=== PATIENT | female | born 1945 | race Caucasian/White ===

== ENCOUNTER 2025-06-29 07:21 | Outpatient (CLI) | payer MEDICARE, MEDICAID ==
[~2025-06-29] VITALS: Ht 148.6 cm; Wt 80.3 kg
[2025-06-29 07:49] LABS: ABG BASE EXCESS -1.6 mmol/L (-2.0-3.0); ABG HCO3 21.9 mmol/L (21.0-28.0); ABG OXYGEN SATURATION 95.5 % (94.0-98.0); ABG PCO2 (T) 33.0 mmHg (32.0-45.0); ABG PH (T) 7.439 (7.350-7.450); ABG PO2 (T) 80.1 mmHg (83.0-108.0); FCOHb 0.3 % (0.5-1.5); FHHb 4.5 % (0.0-5.0); FIO2 21.0 mmHg/%; FMetHb 0.3 % (0.0-1.5); FO2Hb 94.9 % (94.0-98.0); MODE ROOM AIR; PATIENT TEMPERATURE 37.0; TOTAL HEMOGLOBIN 12.5 G/dl (12.0-16.0)
[2025-06-29] MEDS: albuterol 2.5 MG/3 ML nebule NEB ONE (08:52)
[2025-06-29 08:54] VITALS: PULSE 78; RESP 16; O2SAT 96
[2025-06-29 09:05] VITALS: PULSE 79; RESP 16
--- NOTE | 2025-06-29 15:24 | PROCEDURE NOTE - Respiratory ---
Procedure Note-Respiratory Providers to Copies To 1: CECY ALSTON MD; TEN MCCARTY MD Procedure Name: This is a complete pulmonary function study dated June 29, 2025. Hemoglobin measurement was made as part of the study. There was also a room air blood gas obtained on the same date. Spirometry measurements: There is substantial reduction in both the forced vital capacity and the FEV1 measurements. The FEV1 ratio is normal. The terminal flow rates FEF 25-75% is reduced. Following the administration of inhaled bronchodilator, there is significant improvement in the FEV1 , forced vital capacity, and the flow rate measurements. Lung volume measurements: The total lung capacity is normal. The functional residual capacity is in the upper range of normal. The residual volume is somewhat elevated. This indicates some degree of air trapping within the lungs. Lung diffusion measurement: The DLCO measurement is clearly reduced. We note that the KVO measurement however is in the normal range. It is the alveolar volume measurement that is significantly reduced. It is noted that the hemoglobin measurement is in the normal range. Airway resistance measurement: The airway resistance is borderline elevated. Conclusion: This study is abnormal. The predominant abnormality is that of moderate severity obstructive ventilatory defect. The patient clearly shows improvement with inhaled bronchodilator. This indicates the presence of smoking-related COPD. This patient will likely improve with the clinical use of bronchodilator therapy. The lung diffusion capacity is depressed primarily because of loss of alveolar volume. The patient's history of pulmonary fibrosis is not severe enough to have reduced the total lung capacity or the functional residual capacity. An arterial blood gas was drawn from this patient while the patient was breathing ambient air. The blood pH is normal. The pCO2 is normal. The room air PO2 is at the lower limit of normal at 80 mmHg. We have no previous studies for comparison. NEREIDA YU MD Jun 29, 2025 15:24
== END 2025-06-29 23:59 | disposition home or self-care (01) ==
LOC: RT 07:21
PROVIDERS: ATTEND Internal Medicine Cardiovascular Disease
DX: R06.02 Shortness of breath (principal); J84.10 Pulmonary fibrosis, unspecified
CPT/HCPCS: 36600; 82803; 85018; 94060; 94727; 94729; 94760